=== PATIENT | female | born 1930 | race Hispanic/Latino ===

== ENCOUNTER 2017-04-09 11:55 | Outpatient (CLI) | payer MEDICARE, OTHER ==
--- NOTE | 2017-04-09 15:15 | Mammography Report ---
Screening mammogram: Routine views are compared to her prior exam in March 2012. The breasts have a generally fatty replaced with diffuse vascular calcifications bilaterally. In the medial left breast is a focal asymmetry which is not present on her prior exam. The remainder of the exam is unchanged. CAD used. Impressions: Left breast asymmetry. Recommendation: Spot compression imaging and ultrasound, if needed. BI-RADS CATEGORY: 0 = Needs additional imaging evaluation ACR BI-RADS MAMMOGRAPHIC CODES: 0 = Needs additional imaging evaluation; 1 = Negative; 2 = Benign; 3 = Probably benign; 4 = Suspicious; 5 = Malignant; 6 = Known biopsy-proven malignancy COMMENT: 1. Dense breast tissue, i.e., adenosis, fibrocystic changes, etc., may obscure an underlying neoplasm. 2. Approximately 10% of cancers are not detected with mammography. 3. A negative mammography report should not delay biopsy if a clinically suspicious mass is present.
== END 2017-04-09 11:56 | disposition home or self-care (01) ==
LOC: MAMMO 11:55
PROVIDERS: ATTEND Internal Medicine
DX: Z12.31 Encounter for screening mammogram for malignant neoplasm of breast (principal)
CPT/HCPCS: 77067; G0202

== ENCOUNTER 2017-04-21 09:27 | Outpatient (CLI) | payer MEDICARE, OTHER ==
--- NOTE | 2017-04-22 08:39 | Mammography Report ---
BONE DEXA:04/21/17 09:30:00 CLINICAL: Postmenopausal osteopenia COMPARISON: Previous studies from 2011, 2009, 2007, 2004 and 2001 TECHNIQUE: Two site bone DEXA performed on an Hologic scanner. FINDINGS: The average BMD of the lumbar spine L1 and L4 is 0.904g/cm squared with a T-score =-1.2 and a Z score of +1.6. This compares to 0.900 g/cm squared on the last exam and represents a +0.4%% increase in BMD from the previous and a +0.8% increase from baseline. The L2 and L3 vertebral bodies were excluded his outliers because of endplate sclerosis. There is moderate dextroscoliosis centered at L2-3. The average BMD of the left hip is 0.730g/cm squared with a T-score =-1.7 and a Z score of +0.6.This compares to 0.729g/cm squared on the last exam and represents a +0.1% change in BMD from the previous and a -18.9% change from baseline. IMPRESSION: 1. WHO classification: Osteopenia with increased fracture risk based on L-spine and left hip measurements. A slight improvement in both spine and left hip BMD compared to the prior exam. 2. The FRAX 10 year fracture probability for a major osteoporotic fracture is 14%. 3. The FRAX 10 year fracture probability for hip fracture is 3.9%. Note: FRAX version 3.01. Fracture probability calculated for an untreated patient. Fracture probability may be lower if the patient has received treatment. RECOMMENDATION: Clinical correlation and routine screening. DEFINITIONS: BMD = Bone Mineral Density T-score = BMD related to mean peak bone mass of young adult (mean expressed in Standard Deviation) Z-score = Age matched BMD expressed in SD World Health Organization (WHO) Diagnostic Criteria Normal T-score > -1 SD Osteopenia T-score between -1 and -2.4 SD Osteoporosis T-score -2.5 SD or below NOTE: BMD is not the only risk factor for fracture; also consider factors such as the patient's age, risk of falling, previous osteoporotic fracture, family history of osteoporotic fractures, current smoker, and low body weight. All treatment decisions require clinical judgment and consideration of individual patient factors, including patient preferences, comorbidities, previous drug use and wrist factors not captured in the FRAX model (e.g. frailty, falls, vitamin D deficiency, increased bone turnover, interval significant decline in BMD). Z-scores are not calculated if >80 years of age.
== END 2017-04-21 09:28 | disposition home or self-care (01) ==
LOC: MAMMO 09:27
PROVIDERS: ATTEND Internal Medicine
DX: M85.88 Other specified disorders of bone density and structure, other site (principal); Z78.0 Asymptomatic menopausal state
CPT/HCPCS: 77080

== ENCOUNTER 2017-09-01 13:14 | Outpatient (CLI) | payer MEDICARE, OTHER ==
--- NOTE | 2017-09-01 14:11 | Mammography Report ---
Left mammogram: Patient recalled for left asymmetry. The small left asymmetry on the additional images is no longer present. Impression: Benign findings. Recommendation: Annual mammogram followup. BI-RADS CATEGORY: 1 = Negative ACR BI-RADS MAMMOGRAPHIC CODES: 0 = Needs additional imaging evaluation; 1 = Negative; 2 = Benign; 3 = Probably benign; 4 = Suspicious; 5 = Malignant; 6 = Known biopsy-proven malignancy COMMENT: 1. Dense breast tissue, i.e., adenosis, fibrocystic changes, etc., may obscure an underlying neoplasm. 2. Approximately 10% of cancers are not detected with mammography. 3. A negative mammography report should not delay biopsy if a clinically suspicious mass is present.
== END 2017-09-01 13:15 | disposition home or self-care (01) ==
LOC: MAMMO 13:14
PROVIDERS: ATTEND Internal Medicine
DX: R92.8 Other abnormal and inconclusive findings on diagnostic imaging of breast (principal)